=== PATIENT | female | born 1985 | race African-American/Black ===

== ENCOUNTER 2021-01-10 13:28 | Emergency (ER) | payer MEDICAID ==
[~2021-01-10] VITALS: Ht 172.7 cm; Wt 78.0 kg
[2021-01-10] MEDS ORDERED: TRAM-529 MT (15:57)
[2021-01-10 16:35] VITALS: BP 112/59
== END 2021-01-10 17:08 | disposition home or self-care (01) ==
LOC: ER 13:28
DX: R07.81 Pleurodynia (principal); R05 Cough; M54.9 Dorsalgia, unspecified; E03.9 Hypothyroidism, unspecified; Z20.822 Contact with and (suspected) exposure to COVID-19
CPT/HCPCS: 71045; 99284; C9803; U0003; U0005